=== PATIENT | male | born 1985 | race Two or more races ===

== ENCOUNTER 2017-07-26 09:50 | Emergency (ER) | payer MEDICAID ==
[~2017-07-26] VITALS: Ht 167.6 cm; Wt 63.2 kg
[2017-07-26 10:12] VITALS: BP 99/60; Ht 167.6 cm; Wt 63.2 kg
== END 2017-07-26 10:56 | disposition home or self-care (01) ==
LOC: ED 09:50
DX: K52.9 Noninfective gastroenteritis and colitis, unspecified (principal)

== ENCOUNTER 2017-10-21 16:35 | Emergency (ER) | payer MEDICAID ==
[~2017-10-21] VITALS: Ht 167.6 cm; Wt 64.6 kg
[2017-10-21 16:48] VITALS: Ht 167.6 cm; Wt 64.6 kg
[2017-10-21 18:45] VITALS: BP 118/72
== END 2017-10-21 18:50 | disposition home or self-care (01) ==
LOC: ED 16:35
DX: S06.0X0A Concussion without loss of consciousness, initial encounter (principal); S00.83XA Contusion of other part of head, initial encounter; Y04.8XXA Assault by other bodily force, initial encounter; Y93.89 Activity, other specified; Y92.89 Other specified places as the place of occurrence of the external cause; Y99.8 Other external cause status

== ENCOUNTER 2018-03-04 08:45 | Emergency (ER) | payer MEDICAID ==
[~2018-03-04] VITALS: Ht 167.6 cm; Wt 66.8 kg
[2018-03-04 10:02] LABS: CALCIUM 8.7 mg/dL (8.5-10.1); CARBON DIOXIDE 29.2 mmol/L (21-32); CHLORIDE SERUM 101 mmol/L (98-107); CREATININE SERUM 0.9 mg/dL (0.7-1.3); GFR1 > 60 mL/min; GLUCOSE SERUM 94 mg/dL (74-106); POTASSIUM SERUM 4.1 mmol/L (3.5-5.1); SODIUM SERUM 137 mmol/L (136-145)
[2018-03-04 10:07] LABS: ALBUMIN 4.2 g/dL (3.4-5.0); ALKALINE PHOSPHATASE 101 U/L (46-116); ALT/SGPT 185 U/L (16-63); AST/SGOT 68 U/L (15-37); BILIRUBIN TOTAL 0.72 mg/dL (0.20-1.00); LIPASE 84 IU/L (73-393); TOTAL PROTEIN, SERUM 7.9 g/dL (6.4-8.2)
[2018-03-04 10:14] LABS: PLATELET COUNT 264 x10^3mcL (130-400); RED CELL DISTRIBUTION WIDTH 13.2 % (11.5-14.5)
[2018-03-04 10:20] LABS: BASOPHIL % 0 % (0-2)
[2018-03-04 13:04] VITALS: BP 109/66
== END 2018-03-04 13:04 | disposition home or self-care (01) ==
LOC: ED 08:45
PROVIDERS: Emergency Medicine
DX: R10.33 Periumbilical pain (principal); R10.32 Left lower quadrant pain; R11.10 Vomiting, unspecified; R19.7 Diarrhea, unspecified
CPT/HCPCS: 87046; 87046-59; J1885; J2405; J7030